=== PATIENT | female | born 1965 | race Hispanic/Latino ===

== ENCOUNTER 2017-06-04 09:19 | Emergency (ER) | payer SELFPAY ==
--- NOTE | 2017-06-04 09:59 | EDM.PDOC ---
<Lisandra Batres - Last Filed: 06/04/17 10:56> ED HPI GENERAL MEDICAL PROBLEM - General Chief Complaint: Genitourinary Problem Stated Complaint: POSS. BLADDER INFECTION Time Seen by Provider: 06/04/17 09:34 Source of Information: Reports: Patient History Limitations: Reports: No Limitations - History of Present Illness INITIAL COMMENTS - FREE TEXT/NARRATIVE: Patient is a 51 YO female who presents today with dysuria and frequency. She states this started 4 days ago, shortly after intercourse with a new partner. She reports an inability to urinate. She feel like she need to push in order to produce any urine but still has a sensation that her bladder is full. She reports subrapubic tenderness. Her partner reported to her that he felt a marble sized lump inside her vagina. She denies any pain or bleeding with intercourse. She reports right sided lower back pain that radiates into her leg which started several weeks ago. She reports sitting for 12 hours per day at her job. She has tried taking Ibuprofen with minimal relief. She denies history of kidney stones. She has had a partial hysterectomy. She recently moved her from [place] in order to work in the [employer]. She does not currently have insurance but states she will obtain insurance on Friday and then would like to establish with a primary care provider. She denies fever, chills, nausea, vomiting, hematuria, or vaginal discharge. Patient is hypertensive today at 178/ 108. She is on blood pressure medications. She does not know what they are called but states she has not been taking them regularly. She states one of them is a "water pill". - Related Data Allergies Allergy/AdvReac Type Severity Reaction Status Date / Time No Known Allergies Allergy Verified 06/04/17 09:40 Home Meds: Home Meds . [No Known Home Meds] 06/04/17 [History] ED ROS GENERAL - Review of Systems Review Of Systems: See Below Constitutional: Reports: No Symptoms Respiratory: Reports: No Symptoms Cardiovascular: Reports: No Symptoms GI/Abdominal: Reports: Abdominal Pain (suprapubic pain and pressure). Denies: Nausea, Vomiting : Reports: Dysuria, Frequency, Pain (with urination), Urgency, Urinary Retention. Denies: Discharge, Flank Pain, Hematuria, Incontinence Musculoskeletal: Reports: Back Pain (right sciatic distribution) Skin: Reports: No Symptoms Neurological: Reports: No Symptoms Psychiatric: Reports: No Symptoms ED EXAM, GI/ABD - Physical Exam Exam: See Below Exam Limited By: No Limitations General Appearance: Alert, WD/WN, No Apparent Distress Respiratory/Chest: No Respiratory Distress, Lungs Clear, Normal Breath Sounds, No Accessory Muscle Use Cardiovascular: Normal Peripheral Pulses, Regular Rate, Rhythm, No Murmur, Other (1+ pitting edema in lower extremities bilaterally) GI/Abdominal Exam: Normal Bowel Sounds, Soft, Tender (mild suprapubic tenderness ). No: Guarding, Rebound Back Exam: Other (right sciatric pain on palpation into the [place]). No: CVA Tenderness (L), CVA Tenderness (R) Course - Vital Signs Last Recorded V/S: Last Vital Signs Temp 98.7 F 06/04/17 09:34 Pulse 73 06/04/17 09:34 Resp 16 06/04/17 09:34 BP 178/108 H 06/04/17 09:34 Pulse Ox 100 06/04/17 09:34 - Orders/Labs/Meds Orders: Active Orders 24 hr Category Date Time Status UA W/MICROSCOPIC [URIN] Stat Lab 06/04/17 10:05 Ordered Labs: Laboratory Tests 06/04/17 Range/Units 10:05 Urine Color Yellow (Yellow) Urine Appearance Clear (Clear) Urine pH 6.0 (5.0-8.0) Ur Specific [place] 1.020 (1.005-1.030) Urine Protein Negative (Negative) Urine Glucose (UA) Negative (Negative) Urine Ketones Negative (Negative) Urine Occult Blood Negative (Negative) Urine Nitrite Negative (Negative) Urine Bilirubin Negative (Negative) Urine Urobilinogen 0.2 (0.2-1.0) Ur Leukocyte Esterase Negative (Negative) Urine RBC 0-5 (0-5) /hpf Urine WBC 0-5 (0-5) /hpf Ur Epithelial Cells 0-5 (0-5) /hpf Urine Bacteria Few (FEW) /hpf Urine Mucus Not seen (FEW) /hpf Departure - Departure Disposition: Home, Self-Care 01 Clinical Impression: Vaginal wall cyst - Discharge Information Referrals: PCP,None [Primary Care Provider] - Forms: ED Department Discharge Additional Instructions: there is no sign of UTI or STD on exam today. Follow up with one of our providers at our [facility] next week or next available appointment. Call [phone] for appointment. Return to ED as needed if symptoms worsening in any way. <Anil Arriaza Indra - Last Filed: 06/04/17 15:12> ED HPI GENERAL MEDICAL PROBLEM Pelvic Pain Score (Numeric/FACES): 7 Past Medical History Cardiovascular History: Reports: Hypertension - Past Surgical History Female Surgical History: Reports: Hysterectomy Social & Family History - Tobacco Use Smoking Status *Q: Never Smoker - Caffeine Use Caffeine Use: Reports: Coffee - Recreational Drug Use Recreational Drug Use: No ED EXAM, GI/ABD - Physical Exam (Female) Exam: Normal External Exam, Other (there is a small buldging of tissue R vaginal wall, not inflamed, etiology unclear, very minimal tenderness) . No: Vaginal Discharge Extremities: Normal Inspection, Normal Range of Motion Neurological: Alert, Oriented, No Motor/Sensory Deficits Skin Exam: Warm, Dry, Normal Color Course - Orders/Labs/Meds Labs: Laboratory Tests 06/04/17 Range/Units 10:05 Urine Color Yellow (Yellow) Urine Appearance Clear (Clear) Urine pH 6.0 (5.0-8.0) Ur Specific [place] 1.020 (1.005-1.030) Urine Protein Negative (Negative) Urine Glucose (UA) Negative (Negative) Urine Ketones Negative (Negative) Urine Occult Blood Negative (Negative) Urine Nitrite Negative (Negative) Urine Bilirubin Negative (Negative) Urine Urobilinogen 0.2 (0.2-1.0) Ur Leukocyte Esterase Negative (Negative) Urine RBC 0-5 (0-5) /hpf Urine WBC 0-5 (0-5) /hpf Ur Epithelial Cells 0-5 (0-5) /hpf Urine Bacteria Few (FEW) /hpf Urine Mucus Not seen (FEW) /hpf - Re-Assessments/Exams Free Text/Narrative Re-Assessment/Exam: 06/04/17 15:11 UA was negative for infection, on exam as noted there was a small bulging of tissue right vaginal wall etiology unclear, possible cystocele, discharge instructions as documented. Departure - Departure Time of Disposition: 11:16
== END 2017-06-04 11:35 | disposition home or self-care (01) ==
LOC: JD.ED 09:19
DX: N89.8 Other specified noninflammatory disorders of vagina (principal); I10 Essential (primary) hypertension
CPT/HCPCS: 81001; 99283